=== PATIENT | female | born 1940 | race Caucasian/White ===

== ENCOUNTER 2018-06-17 10:22 | Day surgery (SDC) | payer MEDICARE ==
[~2018-06-17 10:22] MED LIST: Metoclopramide 10 MG/2 ML SDV IV PRN
[2018-06-17] MEDS: Sodium Chloride 0.9% 1,000 ML IV SCH (11:18)
[2018-06-17] MEDS ORDERED: Glycopyrrolate 0.2 MG/ML 2 ML SDV ONE (13:30)
[2018-06-17] MEDS ORDERED: Propofol 1,000 MG/100 ML SDV ONE (13:30)
[2018-06-17] MEDS ORDERED: Midazolam 1 MG/ML 2 ML SDV ONE (13:30)
--- NOTE | 2018-06-17 14:40 | OR ---
DATE OF OPERATION: 06/17/2018 PREOPERATIVE DIAGNOSIS: History of colon polyps. POSTOPERATIVE DIAGNOSIS: History of colon polyps. PROCEDURE: Colonoscopy. ANESTHESIA: MAC. ESTIMATED BLOOD LOSS: None. COMPLICATIONS: None. INDICATION FOR THE PROCEDURE: The patient is a 77-year-old female, here today for surveillance colonoscopy. Last scope was 5-1/2 years ago. No polyps identified on that scope. She does have a personal history of colon polyps and also personal history of segmental colon resection for stricture. The patient has otherwise been doing well for the last 5 years without any change in bowel habits. DESCRIPTION OF THE PROCEDURE: Informed consent was obtained from the patient. The patient was taken to the operating room and placed on table in left lateral decubitus position. Monitored anesthesia care was administered. Digital rectal exam was performed and was normal. Colonoscope then advanced through the anus, directed toward the cecum. Cecum was reached and identified by appendiceal orifice and ileocecal valve. Colonoscope then slowly withdrawn. 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 Also had moderate to severe diverticula throughout the colon, both large and small. Colonoscope was then slowly withdrawn. Otherwise, no polyps, no masses identified. Rectum also was normal. Colonoscope was then withdrawn. FINDINGS: Severe diverticulosis and melanosis coli throughout the colon. RECOMMENDATIONS: Due to family history as well as personal history, we would recommend 1 more screening colonoscopy in 5 years. Otherwise, we would recommend high-fiber diet and lots of water for diverticula. DWAYNE/MELISSA /[id number]
[2018-06-17 15:10] VITALS: BP 121/54
== END 2018-06-17 15:15 | disposition home or self-care (01) ==
LOC: LB.SDS 10:22
PROVIDERS: ATTEND Surgery
DX: Z12.11 Encounter for screening for malignant neoplasm of colon (principal); K57.50 Diverticulosis of both small and large intestine without perforation or abscess without bleeding; K63.89 Other specified diseases of intestine; Z86.010 Personal history of colon polyps
CPT/HCPCS: 45378; J2250; J2704; J3490; J7030

== ENCOUNTER 2022-07-19 13:26 | Emergency (ER) | payer MEDICARE ==
[2022-07-19 14:07] VITALS: BP 152/57; PULSE 60
== END 2022-07-19 15:27 | disposition home or self-care (01) ==
LOC: LB.ED 13:26
DX: M79.89 Other specified soft tissue disorders (principal); R79.1 Abnormal coagulation profile; I10 Essential (primary) hypertension; Z88.2 Allergy status to sulfonamides; Z88.8 Allergy status to other drugs, medicaments and biological substances; Z79.899 Other long term (current) drug therapy
CPT/HCPCS: 36415; 85379; 99284

== ENCOUNTER 2024-08-29 21:48 | Emergency (ER) | payer MEDICARE ==
[2024-08-29] MEDS ORDERED: Naloxone 2 MG/2 ML Syringe IVPUSH PRN (22:32)
[2024-08-29] MEDS: HYDROmorphone 2 MG/ML Syringe IVPUSH PRN (22:41)
[2024-08-30 00:36] VITALS: PULSE 73
[2024-08-30 00:54] LABS: COLOR,URINE YELLOW
[2024-08-30 00:55] LABS: APPEARANCE,URINE CLOUDY (CLEAR); BACTERIA,URINE MODERATE /HPF; BILIRUBIN,URINE NEGATIVE (NEGATIVE); GLUCOSE,URINE NEGATIVE (NEGATIVE); KETONES,URINE NEGATIVE (NEGATIVE); LEUKOCYTE ESTERASE,URINE TRACE (NEGATIVE); NITRITE,URINE POSITIVE (NEGATIVE); OCCULT BLOOD,URINE NEGATIVE (NEGATIVE); PH,URINE 5.5 (5.0-8.0); PROTEIN,URINE NEGATIVE (NEGATIVE); RBC,URINE 0-5 /HPF; SQUAMOUS EPITHELIAL CELLS,UR FEW /HPF; UROBILINOGEN,URINE 0.2 E.U./dL (0.2-1.0)
[2024-08-30 02:28] VITALS: BP 112/52
[2024-08-30] MEDS ORDERED: Sodium Chloride 0.9% 10 ML Syringe FLUSH PRN (02:39)
== END 2024-08-30 00:52 ==
LOC: LB.ED 21:48
DX: S72.001A Fracture of unspecified part of neck of right femur, initial encounter for closed fracture (principal); I10 Essential (primary) hypertension; E78.00 Pure hypercholesterolemia, unspecified; Z88.2 Allergy status to sulfonamides; Z88.8 Allergy status to other drugs, medicaments and biological substances; Z79.899 Other long term (current) drug therapy; W01.0XXA Fall on same level from slipping, tripping and stumbling without subsequent striking against object, initial encounter
CPT/HCPCS: 51702; 73502; 73552; 81001; 96374; 96376; 99285; J1171; A0425; A0428

== ENCOUNTER 2024-09-04 10:30 | Inpatient (IN) | payer MEDICARE ==
[2024-09-04] MEDS ORDERED: Glucagon,Human Recombinant 1 MG Vial IM PRN (15:48)
[2024-09-04] MEDS ORDERED: 50% Dextrose in Water 50 ML Syringe IVPUSH PRN (15:48)
[2024-09-04] MEDS: Polyethylene Glycol 3350 Powder 17 GM Packet PO SCH (16:24)
[2024-09-04] MEDS: Acetaminophen 500 MG Tab PO SCH (16:25)
[2024-09-04] MEDS: Enoxaparin 30 MG/0.3 ML Syringe SUBCUT SCH (16:28)
[2024-09-04] MEDS: traMADol 50 MG Tab PO PRN (16:33)
[2024-09-04] MEDS: Insulin Lispro 100 Unit/ML 3 ML KwikPen SUBCUT SCH (18:38)
[2024-09-05] MEDS: Calcium Carbonate/Vitamin D3 1500 MG-400 Units Tab PO SCH (08:07)
[2024-09-05] MEDS: Losartan 50 MG Tab PO SCH (08:07)
[2024-09-05] MEDS: Aspirin 325 MG Tab.EC PO SCH (08:10)
[2024-09-07] MEDS ORDERED: Magnesium Hydroxide 400 MG/5 ML Susp 30 ML Cup PO PRN (08:22)
[2024-09-07] MEDS ORDERED: Zinc Oxide 20% Oint 56.7 GM Tube TOP PRN (08:24)
[2024-09-13] MEDS: Melatonin 3 MG Tab PO SCH (19:29)
[2024-09-17 11:27] LABS: CALCIUM 9.7 mg/dL (8.5-10.1); MAGNESIUM 1.9 mg/dL (1.8-2.4)
[2024-09-17 11:34] LABS: WHITE BLOOD CELL COUNT,WBC 3.9 K/uL (4.0-11.0)
[2024-09-17 11:35] LABS: HEMATOCRIT 33.1 % (37.0-47.0); HEMOGLOBIN 10.5 g/dL (11.5-16.5); MEAN CORPUSCULAR HEMOGLOBIN 30.8 pg (27.0-32.0); RED BLOOD CELL COUNT 3.41 M/uL (3.80-5.80)
[2024-09-17 11:36] LABS: MEAN CORPUSCULAR HGB CONC 31.7 g/dL (31.0-35.0); MEAN PLATELET VOLUME 12.4 fL (6.0-10.0); RED CELL DISTRIBUTION WIDTH 16.2 % (11.0-16.0)
[2024-09-17 11:48] LABS: BUN/CREATININE RATIO 27.5 (6-25); CARBON DIOXIDE,CO2 26.4 mmol/L (21.0-32.0); CREATININE 0.69 mg/dL (0.55-1.02); EST CRCL DRUG DOSING (CG) 45.93 mL/min
[2024-09-17 11:53] LABS: ANION GAP 12.6 mmol/L (5.0-15.0)
[2024-09-18] MEDS: Enoxaparin 30 MG/0.3 ML Syringe SUBCUT SCH (07:17)
[2024-09-19] MEDS: Acetaminophen 500 MG Tab PO PRN (01:17)
[2024-09-23 09:12] VITALS: BP 132/52; PULSE 83
== END 2024-09-23 11:58 | disposition home or self-care (01) | DRG 948 ==
LOC: LB.MS 10:30 → UNDOADMIN 10:30 → LB.MS 15:30
PROVIDERS: ADMIT Family Medicine; ATTEND Family Medicine
DX: R53.81 Other malaise (principal); S72.009D Fracture of unspecified part of neck of unspecified femur, subsequent encounter for closed fracture with routine healing; I10 Essential (primary) hypertension; E78.00 Pure hypercholesterolemia, unspecified; K59.09 Other constipation; M19.90 Unspecified osteoarthritis, unspecified site; F41.9 Anxiety disorder, unspecified; D64.9 Anemia, unspecified; S32.591D Other specified fracture of right pubis, subsequent encounter for fracture with routine healing; E11.9 Type 2 diabetes mellitus without complications; Z88.2 Allergy status to sulfonamides; Z88.8 Allergy status to other drugs, medicaments and biological substances; Z79.4 Long term (current) use of insulin; Z98.890 Other specified postprocedural states; Z79.899 Other long term (current) drug therapy; Z79.82 Long term (current) use of aspirin; Z90.710 Acquired absence of both cervix and uterus
CPT/HCPCS: 36415; 73502-RT; 80048; 82947; 83735; 85027; 97110-GP; 97116-GP; 97161-GP; 97165-GO; 97530-GO; 97530-GP; 97535-GO; 99305; 99307; 99308; 99316; A9270-GY; J1650; J1815